=== PATIENT | female | born 1945 | race Caucasian/White ===

== ENCOUNTER → 2018-01-13 08:08 | Outpatient (CLI) | payer MEDICARE, OTHER ==
[2014-05-26 13:54] VITALS: BMI 24.9
[~2018-01-13 08:08] MED LIST: ALDACTONE25 MG PO; ESTRACE2 MG PO; HYDROCODONE-APA1 TAB PO; PROZAC40 MG PO; TOPROL XL25 MG PO
== END | disposition home or self-care (01) ==
LOC: D.RAD 08:08
DX: M79.671 Pain in right foot (principal); R60.0 Localized edema

== ENCOUNTER → 2018-01-25 17:27 | Outpatient (CLI) | payer MEDICARE, OTHER ==
[2014-05-26 13:54] VITALS: BMI 24.9
== END | disposition home or self-care (01) ==
LOC: D.MRI 17:27
DX: M79.671 Pain in right foot (principal)

== ENCOUNTER 2018-08-23 08:00 | Outpatient (CLI) | payer MEDICARE, OTHER ==
[2014-05-26 13:54] VITALS: BMI 24.9
== END 2018-08-23 09:00 | disposition home or self-care (01) ==
LOC: D.MAMMO 08:00
DX: Z12.31 Encounter for screening mammogram for malignant neoplasm of breast (principal)

== ENCOUNTER → 2019-05-09 09:17 | Outpatient (CLI) | payer MEDICARE, OTHER ==
[2014-05-26 13:54] VITALS: BMI 24.9
--- NOTE | 2019-05-10 15:54 | EC ---
PATIENT:EZ OLIVEIRA DATE OF SERVICE: 05/09/19 SEX: F MEDICAL RECORD: [id number] DATE OF : 47 LOCATION:[facility] AGE OF PATIENT: 74 ADMISSION DATE: 05/09/19 REFERRING PHYSICIAN: INTERPRETING PHYSICIAN: REEMA CHAVEZ MD ECHOCARDIOGRAM REPORT ECHO CHARGES 4 ECHO COMPLETE Date: 05/09/19 CLINICAL DIAGNOSIS: HEART MURMUR ECHOCARDIOGRAPHIC MEASUREMENTS (adult normal given) AC root (d.<3.7cm) 3.1 cm LV Septum d (<1.2 cm> 1.2 cm Valve Excursion 1.7 cm LV Septum (systole) 1.7 cm Left Atria (s.<4.0cm> 4.2 cm LVPW d(<1.2cm) 1.5 cm RV (d.<2.3cm) 3.6 cm LVPW (sytole) 1.8 cm LV diastole(<5.6CM) 4.4 cm MV E-F(>70mm/sec) cm LV systole 2.4 cm LVOT Diameter 1.7 cm MV exc.(>10mm) 1.9 cm Est.ejection fraction (50-75%) % DOPPLER: LVIT cm/sec A 34.0 cm/sec E 63.0 cm/sec LA cm/sec RVSP 37 mmHg LVOT 93 cm/sec AOP1/2T m/s Asc. Ao 118 cm/sec RVOT 58 cm/sec RA cm/sec PA 86 cm/sec AV Gradient Peak 5.59 mmHg AV Mean 2.614mmHg AV Area 1.9 cm MV Gradient Peak 2.94 mmHg MV Mean 0.69 mmHg MV Area cm COMMENTS: Cap Sewer: 2 OLIVIA VIZCAINO Factory Clerk: 3 Dr. Muñoz TAPE# PACS Pericardial Effusion N DATE OF SERVICE: Adequate 2D, color flow, spectral Doppler, and M-Mode. Borderline LVH. LV internal dimensions are normal. Wall motion is normal. EF is greater than or equal to 55%. Aortic valve is tricuspid. No evidence of stenosis by Doppler interrogation. Trace AI by color flow imaging. Left atrium is minimally dilated at 4.2 cm. Mitral valve shows no prolapse. Trace MR. Right-sided chambers grossly normal. Trace TR. TRANSINT:[id number] Voice Confirmation ID: [id number] DOCUMENT ID: [id number] ECHOCARDIOGRAM REPORT [id number] EZ OLIVEIRA,REEMA Mayers MD at 1554 CC: [id number] DICTATION DATE: 05/10/19 1314 LEATHER LEVELER: 05/10/19 1541 DEP CLI 05/09/19 [place] [id number] [place] [id number]
== END | disposition home or self-care (01) ==
LOC: D.HCCECHO 08:30
PROVIDERS: ATTEND Internal Medicine Interventional Cardiology
DX: R01.1 Cardiac murmur, unspecified (principal)

== ENCOUNTER 2019-11-21 05:46 | Day surgery (SDC) | payer MEDICARE, OTHER ==
[~2019-11-21] VITALS: Ht 157.5 cm; Wt 68.6 kg
[2019-11-21 06:32] LABS: HEMATOCRIT 39.1 % (36.0-48.0); HEMOGLOBIN 13.2 g/dL (12-16); MCHC 33.8 g/dL (31.0-37.0); MCV 91.8 fL (80.0-100.0); RBC 4.26 10x6/uL (4.00-5.40); RDW 12.4 % (11.5-14.5); WBC 5.5 10x3/uL (4.8-10.8)
[2019-11-21 06:52] VITALS: BP 157/68; Ht 157.5 cm; Wt 68.6 kg
--- NOTE | 2019-11-21 08:27 | NUR ---
0820-ALEXANDRO FROM LAB. 0825-DR RODRIGUEZ ROUNDS TO REPORT FINDINGS.
--- NOTE | 2019-11-21 08:41 | NUR ---
0840-DISCHARGE INSTRUCTIONS REVIEWED. 0850-D/C VIA WHEELCHAIR TO PRIVATE AUTO WITH
--- NOTE | 2019-11-22 09:55 | OP ---
PATIENT NAME: EZ OLIVEIRA MEDICAL RECORD: [id number] :47 LOCATION:[facility] ADMISSION DATE: SURGEON: DOMINICK RODRIGUEZ DO DATE OF OPERATION: 11/21/2019 PROCEDURE: EGD with biopsies. INDICATIONS FOR PROCEDURE: History of Guillory's esophagus and dysphagia. ENDOSCOPE: [employer] video gastroscope. MEDICATIONS: Propofol 150 mg IV per anesthesia. ESTIMATED BLOOD LOSS: Minimal. COMPLICATIONS: None. FINDINGS: Informed consent was given. The patient was made comfortable with the above medication. After reaching an adequate level of sedation by slow IV push, the patient was placed on her left side. The endoscope was advanced under direct visualization through the mouth to the second portion of the duodenum with ease. The esophagus appeared normal. At the GE junction, there was evidence of LA class A reflux-induced esophagitis and possible Guillory's esophagus, based on history of positive biopsies. Cold forceps, biopsies were taken from the squamocolumnar junction to look for ongoing Guillory's and to rule out dysplasia. The endoscope was advanced beyond the GE junction into the stomach and retroflexed to view the cardia, where a small sliding hiatal hernia was present. There were no associated ulcerations or other abnormalities. Throughout the stomach, there were chronic gastritis changes with appearances of granularity and erythema. Cold forceps biopsies were taken from the antrum and incisura to rule out the presence of H. pylori. There were multiple benign-appearing fundic gland polyps. A single biopsy was taken of one of these polyps to confirm the benign diagnosis. The endoscope was advanced beyond the pylorus into the duodenum, which appeared normal to the second portion. Cold forceps biopsies were taken to submit for histopathology. The endoscope was withdrawn from the patient. The patient tolerated the procedure well and there were no complications. IMPRESSION: 1. LA class A reflux-induced esophagitis and possible Guillory's esophagus. Biopsies were taken. 2. Small sliding hiatal hernia. 3. Benign appearing fundic gland polyps. 4. Mild chronic gastritis. Biopsies were taken from the antrum and incisura. 5. Normal duodenum. Biopsy taken. PLAN AND RECOMMENDATIONS: 1. Discharge home when recovery parameters are met. 2. Follow up biopsy specimen results. 3. GERD diet and reflux precautions. 4. Continue current medications, including omeprazole 20 mg daily. 5. Notify the clinic if the dysphagia returns. The patient stated that this has resolved with resuming her omeprazole. 6. We will anticipate a recall EGD in 2 years if biopsies confirm Guillory's mucosa. OPERATIVE REPORT [id number] EZ OLIVEIRA TRANSINT:[id number] Voice Confirmation ID: [id number] DOCUMENT ID: [id number] DOMINICK RODRIGUEZ DO at 0955 CC: [id number] DICTATION DATE: 11/21/19814 INSPECTOR MULTIFOCAL LENS: 11/21/19 1447 [facility] 11/21/19 [place] [id number] [place] [address]
== END 2019-11-21 08:50 | disposition home or self-care (01) ==
LOC: D.OPS 05:46
PROVIDERS: Anesthesiology; ATTEND Internal Medicine Gastroenterology
DX: R13.10 Dysphagia, unspecified (principal); K22.70 Barrett's esophagus without dysplasia; K21.0 Gastro-esophageal reflux disease with esophagitis; K44.9 Diaphragmatic hernia without obstruction or gangrene; K29.50 Unspecified chronic gastritis without bleeding; R10.13 Epigastric pain